=== PATIENT | female | born 1970 | race Caucasian/White ===

== ENCOUNTER → 2023-11-12 07:44 | Outpatient (REF) | payer OTHER, SELFPAY | LOC: WDC 07:44 | PROVIDERS: ATTENDING PHYSICIAN Obstetrics & Gynecology Gynecology; FAMILY PHYSICIAN Student in an Organized Health Care Education/Training Program | DX: Z12.31 Encounter for screening mammogram for malignant neoplasm of breast (principal) | CPT/HCPCS: 77063; 77067 ==

== ENCOUNTER 2024-09-09 15:35 | Emergency (ER) | payer OTHER, SELFPAY ==
[2024-09-09 15:44] VITALS: BP 136/85
[2024-09-09 16:07] LABS: % Basophils 0.8 % (0-2); % Eosinophils 0.9 % (0-6); % Immature Granulocytes 0.2 % (0-0.5); % Lymphocytes 33.2 % (20.5-51.1); % Monocytes 8.4 % (1.7-9.3); % Neutrophils 56.5 % (42.2-75.2); Absolute Basophils 0.1 10^3/uL (0-0.2); Absolute Eosinophils 0.1 10^3/uL (0-0.7); Absolute Lymphocytes 2.1 10^3/uL (1.2-3.4); Absolute Monocytes 0.5 10^3/uL (0.1-0.6); Absolute Neutrophils 3.6 10^3/uL (1.4-6.5); Hematocrit 35.8 % (37.0-47.0); Hemoglobin 12.5 g/dL (12.0-16.0); Mean Corp Hgb Conc. 34.9 g/dL (33.0-37.0); Mean Corpuscular Hgb 30.3 pg (27.0-31.0); Mean Corpuscular Volume 86.7 fL (81.0-99.0); Mean Platelet Volume 10.1 fL (7.4-10.4); Nucleated Red Blood Cells % 0 %; Platelet Count 192 10^3/uL (130-400); Red Blood Cell Count 4.13 10^6/uL (4.20-5.40); Red Cell Dist. Width 12.4 % (11.5-14.5); White Blood Cell Count 6.3 10^3/uL (4.8-10.8)
[2024-09-09 16:27] LABS: ALT (SGPT) 19 U/L (0-35); AST (SGOT) 23 U/L (14-36); Albumin 5.1 g/dl (3.5-5.0); Alkaline Phosphatase 43 U/L (38-126); Blood Urea Nitrogen 22 mg/dl (7-17); Calcium 9.8 mg/dl (8.4-10.2); Carbon Dioxide 22 mmol/L (22-30); Chloride 104 mmol/L (98-107); Glucose 107 mg/dl (70-99); HCG, Serum Qualitative Screen Negative; Potassium 4.5 mmol/L (3.5-5.1); Sodium 138 mmol/L (135-145); Total Bilirubin 0.5 mg/dl (0.2-1.3); Total Protein 7.5 g/dl (6.3-8.2); eGFR > 60.00
[2024-09-09 17:58] VITALS: BP 133/92
[2024-09-09 18:00] VITALS: BP 129/81
[2024-09-09 18:35] VITALS: BMI 27.5
[2024-09-09 18:43] VITALS: BP 129/81
--- NOTE | 2024-09-09 19:03 | ED.GENMED ---
History of Present Illness
General
Chief Complaint: Fainting Sensation
Source: patient
Exam Limitations: none
Time Seen by Provider: 09/09/24 19:02
Nursing documentation reviewed up to this point in time: agreed with
History of Present Illness
History of Present Illness:
53-year-old female presents to the ER for evaluation. Patient reports she had 2 episodes 1 yesterday and 1 today of a fluttering/palpitations in her chest associate with dizziness. Yesterday she was driving when episode occurred lasted for couple
seconds at a time and today she was sitting at her desk. In 2021 she had palpitations and had a normal echo and was seen by cardiology here at [facility].
She had no associated chest pain or shortness of breath.
She does not smoke. She does admit to drinking caffeine 3 cups of caffeinated coffee in the morning and does drink caffeinated iced tea in the evening.
She does take crxs-spf-kfrlifq magnesium at times.
She denies any other axrc-kqx-hfgqokk medicines.
Review of Systems
Review of Systems
Allergies reviewed?: Yes
All Other Systems: ROS reviewed and negative except as documented in HPI and ROS
Constitutional: Reports no symptoms
EENT: Reports no symptoms
Respiratory: Reports no symptoms
Cardiac: Reports palpitations; Denies chest pain, diaphoresis or syncope
ABD/GI: Reports no symptoms
: Reports no symptoms
Musculoskeletal: Reports no symptoms
Neurological: Reports no symptoms
Psychiatric: Reports no symptoms
Phy Exam
General Physical Exam
General Presentation: no apparent distress
General age: appears stated age
General Skin: warm and dry
General Habitus: normal
General Mental: alert
General Hydration: appears well hydrated
Cardiovascular Exam
Cardiovascular Exam: regular rate/rhythm, no murmur and normal peripheral pulses
Pulmonary Exam
Pulmonary Exam: lungs clear and no respiratory distress
Neurological Exam
Neurological Exam: alert and oriented x3
Musculoskeletal Exam
Musculoskeletal Exam: full ROM
Skin Exam
Skin Exam: normal color and warm/dry
Psychiatric Exam
Psychiatric Exam: normal mood/affect
Course
Orders/Labs/Results
Orders:
Orders
09/09/24 15:36
Electrocardiogram (*1) Urgent
Reason for Study: Syncope
EKG- Treatment ONCE
09/09/24 15:50
Test Result ONCE
09/09/24 15:53
CMP [Comprehensive Metabolic Panel] Urgent
Complete Blood Count/With Diff Urgent
HCG, Serum Qualitative Screen Urgent
Magnesium Urgent
Comment: ADD ON
TSH Reflex To Free T4 Urgent
Comment: ADD ON
09/09/24 19:17
Add On- LAB Urgent
Tests Added?: tsh w/ reflexive t4 and magnesium
Abnormal Lab Results
09/09/24
15:53
RBC 4.13 L 10^6/uL
(4.20-5.40)
Hct 35.8 L %
(37.0-47.0)
BUN 22 H mg/dl
(7-17)
Glucose 107 H mg/dl
(70-99)
Albumin 5.1 H g/dl
(3.5-5.0)
09/09/24 15:53
09/09/24 15:53
Vital Signs
Initial and Last Documented VS:
Initial Vital Signs
Temp Pulse Resp BP Pulse Ox
98.2 F 84 16 136/85 100
09/09/24 15:44 09/09/24 15:44 09/09/24 15:44 09/09/24 15:44 09/09/24 15:44
Last Documented Vital Signs
Temp Pulse Resp BP Pulse Ox
98.2 F 63 13 129/81 96
09/09/24 15:44 09/09/24 20:45 09/09/24 20:45 09/09/24 18:43 09/09/24 20:45
MDM/Problems Addressed
MDM/Problems Addressed:
Patient is document is a 53-year-old female who presented with several episodes of palpitations dizziness. She had an episode yesterday and again today. 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 Nina years ago. Patient has
had intermittent PVCs here however no other arrhythmias. She denies any recent zmna-enz-snsxnvv medicines she does drink 3 cups of coffee a day and iced tea at night. She is in no acute distress and looks well. pt had no associated chest pain or
shortness of breath her labs are unremarkable including normal magnesium and normal TSH.
Will discharge home with outpatient follow-up cardiology with instructions to avoid caffeine.
*Pulse Oximetry
Patient hypoxic: no
*EKG
Interpreted by ED Provider?: Yes
Interpretation: normal
Heart Rate: 78
Rate: normal
Rhythm: sinus and PVC's
Ischemia: no ischemia
*Critical Care Note
Total Time (30-74mins, 75-104mins- exclusive of procedures): Not Applicable
Data Reviewed
Review of Other/Old Records Reveals: Other (previous echo )
ED Attending Note
-
Portions of this chart may have been created with voice recognition software.� Occasional wrong word or��sound alike� substitutions may have occurred due to the inherent limitations of voice recognition software.
Discharge Plan
Departure
Patient Disposition: Home (Routine Discharge)
Date of Disposition: 09/09/24
Time of Disposition: 20:42
Patient with high blood pressure during this ER visit?: Yes
Condition: Fair
Covid-19: Not Applicable
Discharge Problem:
Heart palpitations
Instructions: Palpitations ED, BLOOD PRESSURE
Referrals:
Cinthia Mathur PA-C [Family Provider] -
Dmitri Nina MD [Active] -
Activity Restrictions/Additional Instructions:
As discussed be sure to stay well-hydrated.
avoid caffeine chocolates.
Follow-up with cardiology.
Please call the office Thursday to schedule an appointment as soon as possible return if any worsening of symptoms
Interventions
Interventions:
*Risk Screen - Suicide Last Done: 09/09/24 15:52
*General Assessment Last Done: 09/09/24 18:35
*Neglect/Abuse Screening Last Done: 09/09/24 15:52
*ED- Fall Risk Assessment Last Done: 09/09/24 18:35
*ED COVID-19 Vaccine History Last Done: 09/09/24 15:44
*Nursing Disposition Last Done: 09/09/24 21:00
ED- Cardiac Assessment Last Done: 09/09/24 18:37
ED- Neurological Assessment Last Done: 09/09/24 18:37
Discharge Date and Time
Discharge Date/Time: 09/09/24 21:02
Print Language: [id number]
[2024-09-09 20:14] LABS: TSH Reflex To Free T4 1.85 uIU/ml (0.47-4.68)
== END 2024-09-09 21:02 | disposition home or self-care (01) ==
LOC: EMR 15:35
PROVIDERS: Student in an Organized Health Care Education/Training Program; EMERGENCY PHYSICIAN Emergency Medicine; FAMILY PHYSICIAN Student in an Organized Health Care Education/Training Program
DX: R00.2 Palpitations (principal); R03.0 Elevated blood-pressure reading, without diagnosis of hypertension; I49.3 Ventricular premature depolarization
CPT/HCPCS: 99284; 80053; 83735; 84443; 84703; 85025; 93005

== ENCOUNTER → 2024-11-15 07:47 | Outpatient (REF) | payer OTHER, SELFPAY | LOC: WDC 07:47 | PROVIDERS: ATTENDING PHYSICIAN Obstetrics & Gynecology Gynecology; FAMILY PHYSICIAN Student in an Organized Health Care Education/Training Program | DX: Z12.31 Encounter for screening mammogram for malignant neoplasm of breast (principal); Z12.39 Encounter for other screening for malignant neoplasm of breast | CPT/HCPCS: 77063; 77067 ==